=== PATIENT | male | born 1970 | race Caucasian/White ===

== ENCOUNTER 2023-12-06 22:10 | Emergency (ER) | payer OTHER, SELFPAY ==
[2023-12-06 22:16] VITALS: BP 128/69
--- NOTE | 2023-12-07 00:05 | ED.GENMED ---
History of Present Illness
General
Chief Complaint: Eye Problems
Source: patient
Exam Limitations: none
Time Seen by Provider: 12/06/23 23:02
Nursing documentation reviewed up to this point in time: agreed with
Travel History
Have you had any contact with someone who has COVID-19?: No
Do you have any symptoms of coronavirus? Fever > 100 degrees, chills, cough, shortness of breath, sore throat, loss of taste or smell, muscle aches, or headache?: No
History of Present Illness
History of Present Illness:
PT IS A 53 Y/O m
no reported PMH
here with right eye irritation gritty feeling for 2 weeks
today got a lot worse
phtoophobia, tearing
no fever, eye trauma, vision loss but pt says he vannot open his eye becuase he is so sensitive
no contact lenses or glasses
Past History
Past History
ED Past Medical History: None
ED Past Surgical History: None
Social History
Tobacco: Non-smoker
Alcohol: None
Review of Systems
Review of Systems
Allergies reviewed?: Yes
All Other Systems: Not applicable
Phy Exam
Physical Exam
Physical Exam:
GENERAL:: sleeping, easily aroused; disheveled;
EYE: pupils equal and reactive
+photophobia right eye
injected conjunctiva
clear tearing
minimal surrounding edema
no erythema
EOMs intact
tetracaine applied
+ corneal abrasion R upper cornea not in pupillary axis
flipped lid aand there was a whitish firm round FB that was stuck to the lid, removed with q tip
NEUROLOGICAL: Alert and oriented, no focal neuro deficits
SKIN: Warm and dry, skin intact.
PSYCH: Normal and appropriate interaction.
Course
Orders/Labs/Results
Orders:
Orders
12/07/23 00:29
Ofloxacin [Ocuflox] 1 drop .ROUTE .STK-MED ONE
12/07/23 08:00
Ofloxacin [Ocuflox] See Dose Instructions OPHTH QID
Vital Signs
Initial and Last Documented VS:
Initial Vital Signs
Temp Pulse Resp BP Pulse Ox
98.2 F 89 18 128/69 99
12/06/23 22:16 12/06/23 22:16 12/06/23 22:16 12/06/23 22:16 12/06/23 22:16
Last Documented Vital Signs
Temp Pulse Resp BP Pulse Ox
98.2 F 78 18 132/76 100
12/06/23 22:16 12/07/23 00:15 12/07/23 00:15 12/07/23 00:15 12/07/23 00:15
MDM/Problems Addressed
Differential Diagnosis Includes:
corenal abrasion, fb, ulcer
MDM/Problems Addressed:
53 y/o M
right eye irritation for weeks
worse recently
obvious right upper eyelid fb removed
abrasino on cornea
no ulceration
treated with oflox drops
recommend f/u ophtalomology
*Critical Care Note
Total Time (30-74mins, 75-104mins- exclusive of procedures): Not Applicable
ED Attending Note
-
Portions of this chart may have been created with voice recognition software.� Occasional wrong word or��sound alike� substitutions may have occurred due to the inherent limitations of voice recognition software.
Discharge Plan
Departure
Patient Disposition: Home (Routine Discharge)
Date of Disposition: 12/07/23
Time of Disposition: 00:10
Patient with high blood pressure during this ER visit?: No
Condition: Fair
Covid-19: Not Applicable
Discharge Problem:
Abrasion, corneal, Eye foreign body
Instructions: Corneal Abrasion (DC), Foreign Body in Eye (DC)
Prescriptions:
New
ofloxacin [Ocuflox] 0.3 % drops
2 drp ophthalmic (eye) QID 7 Days Qty: 5 0RF
No Action
metronidazole 500 mg Tablet
500 mg PO TID Qty: 30 0RF
vancomycin [Vancocin] 125 mg capsule
125 mg PO QID 10 Days Qty: 40 0RF
Referrals:
NONE,* [Family Provider] -
Mima Mullins MD [Active] - Follow up in 2-3 days (EYE DOCTOR)
Activity Restrictions/Additional Instructions:
USE THE EYE DROP 2 DROPS RIGHT EYE 4 TIMES A DAY FOR 7 DAYS
WEAR SUNGLASSES IN THE LIGHT NEEDED FOR PHOTOSENSITIVITY
AVOID RUBBING YOUR EYES
FOLLOW UP WITH EYE DOCTOR
RETURN NEEDED
Interventions
Interventions:
*Risk Screen - Suicide Last Done: 12/06/23 22:16
*General Assessment Last Done: 12/06/23 22:16
*Neglect/Abuse Screening Last Done: 12/06/23 22:16
ED- Fall Risk Assessment Last Done: 12/07/23 00:42
*Nursing Disposition Last Done: 12/07/23 00:42
Discharge Date and Time
Discharge Date/Time: 12/07/23 00:43
[2023-12-07 00:15] VITALS: BP 132/76
[2023-12-07] MEDS: OCUFLOX 1 DROP OPHTH (00:33)
== END 2023-12-07 00:43 | disposition home or self-care (01) ==
LOC: EMR 22:10
PROVIDERS: EMERGENCY PHYSICIAN Emergency Medicine
DX: T15.01XA Foreign body in cornea, right eye, initial encounter (principal); W44.9XXA Unspecified foreign body entering into or through a natural orifice, initial encounter
CPT/HCPCS: 99283